=== PATIENT | female | born 1970 | race Caucasian/White ===

== ENCOUNTER 2018-08-27 09:33 | Emergency (ER) | payer OTHER ==
[2018-08-27] MEDS ORDERED: NS 1,000 ML IV ONE (10:04)
--- NOTE | 2018-08-27 10:04 | EDPHY ---
General - History Smoking Status: Former smoker Time Seen by Provider: 08/27/18 09:56 Narrative: CHIEF COMPLAINT: Chest pain, short of breath, dizzy HISTORY OF PRESENT ILLNESS: Patient presents by private vehicle with complaints of chest pain, shortness of breath, dizziness. Symptoms started abruptly this morning around 8:00 a.m.. [id number], currently 6/10. No worse with exertion. No radiating pain. No sweating, nausea or vomiting. No headache. No neck pain. The dizziness and lightheadedness is described as "I feel like I could pass out." She states that she has had vertigo in the past and that this is different. She has no fever. No neck pain or stiffness. She did recently return from [place] by flight 2 days ago. No extremity erythema edema or pain. No estrogen use. No previous DVT or PE. No known coronary artery disease. She does have hypertension, dyslipidemia and quit smoking 2 years ago. No other associated complaints or modifying factors REVIEW OF SYSTEMS: 10 systems were reviewed and negative with the exception of the elements mentioned in the history of present illness. PCP: [facility] SPECIALISTS: None currently PAST MEDICAL HISTORY: Hypothyroid, hypertension, dyslipidemia, lumbar stenosis, bunions, acquired hearing loss PAST SURGICAL HISTORY: Hysterectomy, lumbar spine fusion, bunionectomy, right thumb surgery SOCIAL HISTORY: Quit smoking 2-3 years ago. Occasional alcohol. No drug use. 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 Lives independently FAMILY HISTORY: Maternal aunt with coronary artery disease. No other contributory family disease EXAMINATION: General Appearance: Alert, no distress Head: normocephalic, atraumatic Eyes: Pupils equal and round, no conjunctival pallor or injection. EOM symmetric without nystagmus. ENT, Mouth: Mucous membranes moist. Hearing aids in place bilaterally. Neck: Normal inspection, supple, non-tender Respiratory: Lungs are clear to auscultation Cardiovascular: Regular rate and rhythm. No murmur. Gastrointestinal: Abdomen is soft and nontender Back: non-tender, no bony abnormalities Neurological: GCS 15. A&O, nonfocal, normal gait. No pronator drift. Normal [id number]. Strength is symmetric in all 4 extremities. Light sensory symmetric in upper lower extremities. Skin: Warm and dry, no rash Extremities: Nontender, no pedal edema Psychiatric: Mood and affect normal DIFFERENTIAL DIAGNOSES: Including but not limited to ACS, PE, pleurisy, pneumonia, bronchitis, pneumonitis, pericarditis, near-syncope, dehydration, orthostasis, vertigo Heart Score: Heart score is 2 with a pending troponin MDM: 10:00 a.m. Chest pain with lightheadedness and mild shortness of breath throughout the morning. This is nonreproducible. Nonexertional. Does not radiate. Vital signs are within normal limits. There is no clinical evidence of DVT. She did recently return from [place] 2 days ago. No recent trauma or surgery. No previous diagnosis of coronary artery disease. Family history includes her maternal aunt with CAD. No other family history. Quit smoking 2 years ago. Her vital signs are within normal limits. She is well-appearing and nontoxic. I have ordered cardiac studies, chest x-ray and D-dimer. She is in no acute distress. I have also discussed case with Dr. Sanders. 10:20 a.m. Point of care troponin is negative. 10:25 a.m. D-dimer has returned slightly elevated. Thus I have ordered CT angiography of the chest rule out PE. I feel this is unlikely but necessary with elevated D- dimer. The patient has verbally consented to this. 11:15 a.m. Notified by radiologist Dr. Fu. CT scan of the chest is unremarkable. No evidence of PE. Remainder of her laboratory studies are also within normal limits. 11:25 a.m. I have re-evaluated the patient. She still feeling some mild chest pain. We discussed the shared decision pathway and she has elected to wait in the emergency department for repeat troponin. I do feel this is reasonable. I have also ordered aspirin. 12:30 p.m. Repeat point of care troponin is also negative. Also 0.00. I have re- evaluated the patient. We discussed admission versus observation versus discharge home. We discussed risks, benefits and alternatives of each and she would like to consider this. She would also like to ambulate in the halls. 1:10 p.m. Patient re-evaluated. She has ambulated in the halls and feels asymptomatic at this time. No chest pain. No dizziness. No shortness of breath. I did offer admission to the hospital for observation further care but she has declined. I do feel that she has full capability of making this decision after risks, benefits and alternatives were discussed. We discussed contacting her primary care physician with cardiology referral. We discussed ED precautions for return of her symptoms, loss of consciousness or dizziness. We discussed that she may return to the emergency department any time should she change her mind and wish to be admitted. She is comfortable this plan. She is discharged home well-appearing with vital signs stable. SUPERVISION: Patient was independently examined, but I discussed the case with my secondary supervising physician Dr. Darius Sanders EKG interpretation: Dr. Sanders Sinus rhythm without ischemia per CONSULTATION: None (Coleman Garcia) Medical Decision Making: I did not see this patient while she was in the emergency department. However her care was discussed with the PA while the patient was in the department. I agree with treatment plan and management (Darius Sanders) - Diagnostics EKG Interpretation: EKG interpreted by me shows normal sinus rhythm with normal interval and axis. QRS is normal there is no significant ST elevation or depression arrhythmia. The rate is 70 (Darius Sanders) - Objective Vital Signs: Initial Vital Signs Temperature (C) 36.7 C 08/27/18 09:38 Heart Rate 90 08/27/18 09:38 Respiratory Rate 18 08/27/18 09:38 Blood Pressure 141/94 H 08/27/18 09:38 O2 Sat (%) 96 08/27/18 09:38 O2 Delivery Mode Room Air Allergies/Adverse Reactions: No Known Allergies Allergy (Unverified 08/27/18 09:44) Home Medications: Medication Instructions Recorded ALPRAZolam 08/27/18 Viktoriya Allergy 08/27/18 LYRICA 08/27/18 Levothyroxine 08/27/18 Liothyronine Sodium 08/27/18 Montelukast Sodium 08/27/18 Norvasc 5 mg (*) 08/27/18 Qvar Redihaler 08/27/18 Ranitidine HCl 08/27/18 SIMVASTATIN 08/27/18 valACYclovir 08/27/18 Laboratory Results: Laboratory Results 08/27/18 10:00 08/27/18 10:00 Medications Given: Discontinued Medications Aspirin (Aspirin) 324 mg PO EDNOW ONE Stop: 08/27/18 11:30 Last Admin: 08/27/18 11:34 Dose: 324 mg Sodium Chloride (Ns) 1,000 mls @ 0 mls/hr IV EDNOW ONE; Wide Open PRN Reason: Protocol Stop: 08/27/18 10:05 Last Admin: 08/27/18 10:21 Dose: 1,000 mls Point of Care Test Results: Chemistry 08/27/18 08/27/18 12:18 10:05 POC Troponin I 0.00 ng/mL ng/mL 0.00 ng/mL ng/mL (0.00-0.08) (0.00-0.08) Departure - Departure Disposition: Home, Routine, Self-Care Clinical Impression: Acute chest pain, Near syncope Condition: Good Instructions: Chest Pain (ED), Near Syncope (ED) Additional Instructions: 1. Contact PCP for close outpatient care and Cardiology follow up 2. Contact the on-call print line operator for outpatient follow-up on Thursday. I have also requested that they contact you for follow-up 3. Should you change her mind regarding admission, please return to the emergency department. 4. If you have return of your chest pain, shortness of breath or feeling that you might lose consciousness, please return to emergency department 5. Recommend 81 mg aspirin by mouth once daily Referrals: DARRIAN QUINTANILLA [Other] - As per Instructions Earl Patino MD [Medical Doctor] - As per Instructions
[2018-08-27 10:12] LABS: PLATELET COUNT 253 10^3/uL (150-400)
--- NOTE | 2018-08-27 10:27 | CPEKG ---
Test Reason : OPEN Blood Pressure : / mmHG Vent. Rate : 075 BPM Atrial Rate : 075 BPM P-R Int : 130 ms QRS Dur : 079 ms QT Int : 380 ms P-R-T Axes : 041 070 040 degrees QTc Int : 425 ms Sinus rhythm Confirmed by Darius Sanders ([id number]) on 08/27/2018 10:27:29 AM Referred By: Confirmed By:Darius Sanders
[2018-08-27] MEDS ORDERED: IOPAMIDOL (ISOVUE 370) 100 ML BTL IV ONE (10:32)
[2018-08-27] MEDS ORDERED: ASPIRIN 81 MG CHEWABLE TAB PO ONE (11:29)
[2018-08-27 13:15] VITALS: BP 132/92
== END 2018-08-27 13:20 | disposition home or self-care (01) ==
DX: R07.9 Chest pain, unspecified (principal); R06.02 Shortness of breath; R55 Syncope and collapse; I10 Essential (primary) hypertension; E78.5 Hyperlipidemia, unspecified; E86.9 Volume depletion, unspecified; Z87.891 Personal history of nicotine dependence
CPT/HCPCS: 84484-PO; Q9967

== ENCOUNTER → 2019-02-22 | Outpatient (CLI) | payer OTHER | LOC: CIMAGING 11:55 | PROVIDERS: ATTEND Family Medicine | DX: R51 Headache (principal) | CPT/HCPCS: 70210-PO ==